=== PATIENT | male | born 1970 | race African-American/Black ===

== ENCOUNTER 2017-08-12 00:32 | Emergency (ER) | payer SELFPAY ==
[~2017-08-12] VITALS: Ht 175.3 cm; Wt 87.1 kg
== END 2017-08-12 01:50 | disposition home or self-care (01) ==
LOC: FSED 00:32
DX: N34.1 Nonspecific urethritis (principal)
CPT/HCPCS: 87081; 87205; 99282

== ENCOUNTER 2020-02-04 15:08 | Emergency (ER) | payer SELFPAY ==
[~2020-02-04] VITALS: Ht 175.3 cm; Wt 72.6 kg
[2020-02-04] MEDS ORDERED: SODIUM CHLORIDE 0.9% 1000ML 1,000 ML IV STA (15:27)
[2020-02-04] MEDS ORDERED: IOPAMIDOL 370 MG/ML 200 ML INFUS..BTL INJ ONE (15:39)
[2020-02-04] MEDS ORDERED: SODIUM CHLORIDE 0.9% 50ML 50 ML ONE (15:39)
[2020-02-04] MEDS ORDERED: SODIUM CHLORIDE 0.9% 1000ML 1,000 ML ONE (15:54)
== END 2020-02-04 17:04 | disposition home or self-care (01) ==
LOC: FSED 15:30
DX: R07.89 Other chest pain (principal); M79.10 Myalgia, unspecified site; K21.9 Gastro-esophageal reflux disease without esophagitis; M54.2 Cervicalgia
CPT/HCPCS: 71260; 93005; 99284; J7030; Q9967

== ENCOUNTER 2021-06-06 11:56 | Emergency (ER) | payer OTHER ==
[~2021-06-06] VITALS: Ht 175.3 cm; Wt 81.6 kg
[2021-06-06] MEDS ORDERED: LACTATED RINGER'S 1,000 ML INJ STA (12:17)
[2021-06-06 12:42] LABS: BASOPHILS # (AUTO) 0.1 (0.0-0.1); BASOPHILS % 1.2 % (0.0-1.0); EOSINOPHILS # (AUTO) 0.2 (0.0-0.4); EOSINOPHILS % 3.8 % (0.0-6.0); HEMATOCRIT 47.2 % (38.2-49.6); HEMOGLOBIN 16.1 g/dL (14.0-18.0); LYMPHOCYTES # (AUTO) 1.5 (1.0-3.2); MEAN CORPUSCULAR HGB CONC 34.1 g/dL (31-35); MEAN CORPUSCULAR VOLUME 84.9 fL (81-99); MONOCYTES # (AUTO) 0.4 (0.2-0.8); MONOCYTES % 6.8 % (4.4-11.3); NEUTROPHILS # (AUTO) 3.7 (2.1-6.9); PLATELET COUNT 252 x10e3/uL (140-360); RED BLOOD COUNT 5.56 x10e6/uL (4.3-5.7)
[2021-06-06 12:59] LABS: ALBUMIN 4.1 g/dL (3.5-5.0); ANION GAP 12.7 mmol/L (8-16); CALCIUM 9.2 mg/dL (8.4-10.2); CREATININE, SERUM 1.42 mg/dL (0.72-1.25); POTASSIUM 3.7 mmol/L (3.5-5.1)
[2021-06-06] MEDS ORDERED: SODIUM CHLORIDE 0.9% 1000ML 1,000 ML ONE (13:53)
== END 2021-06-06 14:29 | disposition home or self-care (01) ==
LOC: ER 12:09
DX: R53.1 Weakness (principal); R25.1 Tremor, unspecified; K21.9 Gastro-esophageal reflux disease without esophagitis; Z86.16 Personal history of COVID-19
CPT/HCPCS: 36415; 70450; 71045; 80053; 84484; 85025; 93005; 99284; J7030

== ENCOUNTER 2021-07-30 13:33 | Emergency (ER) | payer OTHER ==
[~2021-07-30] VITALS: Ht 175.3 cm; Wt 84.5 kg
[2021-07-30] MEDS ORDERED: PROPRANOLOL HCL10 MG PO (13:55)
[2021-07-30] MEDS ORDERED: AMLODIPINE BES2.5 MG (13:55)
[2021-07-30] MEDS ORDERED: FAMOTIDINE 20 MG/2 ML VIAL IV ONE ×2 (14:00→14:35)
[2021-07-30] MEDS ORDERED: ONDANSETRON HCL INJ 2MG/ML 2ML 2 MG/ML VIAL IV PRN (14:00)
[2021-07-30] MEDS ORDERED: ONDANSETRON HCL INJ 2MG/ML 2ML 2 MG/ML VIAL ONE (14:34)
[2021-07-30] MEDS ORDERED: SODIUM CHLORIDE 0.9% 1000ML 1,000 ML ONE (14:34)
[2021-07-30] MEDS ORDERED: SODIUM CHLORIDE 0.9% 1000ML 1,000 ML IV STA (15:09)
[2021-07-30] MEDS ORDERED: MAGNESIUM CITR296 ML PO (15:17)
[2021-07-30] MEDS ORDERED: OMEPRAZOLE40 MG PO (15:18)
== END 2021-07-30 15:36 | disposition home or self-care (01) ==
LOC: FSED 14:01
DX: R10.13 Epigastric pain (principal); R00.0 Tachycardia, unspecified; R07.89 Other chest pain; I10 Essential (primary) hypertension; F41.9 Anxiety disorder, unspecified; K21.9 Gastro-esophageal reflux disease without esophagitis; R94.31 Abnormal electrocardiogram [ECG] [EKG]
CPT/HCPCS: 74022; 80048; 80076; 81003; 82553; 84484; 85025; 85379; 93005; 96374; 96375; 99284; J2405; J7030

== ENCOUNTER 2021-08-26 15:26 | Emergency (ER) | payer OTHER ==
[~2021-08-26] VITALS: Ht 175.3 cm; Wt 84.4 kg
[~2021-08-26 15:26] MED LIST: AMLODIPINE BES2.5 MG; MAGNESIUM CITR296 ML PO; OMEPRAZOLE40 MG PO; PROPRANOLOL HCL10 MG PO
[2021-08-26] MEDS ORDERED: KETOROLAC TROMETHAMINE 30 MG/ML VIAL IV STA (16:19)
[2021-08-26 16:48] LABS: BASOPHILS # (AUTO) 0.1 (0.0-0.1); BASOPHILS % 0.7 % (0.0-1.0); EOSINOPHILS # (AUTO) 0.2 (0.0-0.4); EOSINOPHILS % 1.8 % (0.0-6.0); HEMATOCRIT 46.1 % (38.2-49.6); HEMOGLOBIN 15.5 g/dL (14.0-18.0); LYMPHOCYTES # (AUTO) 1.8 (1.0-3.2); LYMPHOCYTES % 21.6 % (18.0-39.1); MEAN CORPUSCULAR HEMOGLOBIN 28.3 pg (28-32); MEAN CORPUSCULAR HGB CONC 33.6 g/dL (31-35); MEAN CORPUSCULAR VOLUME 84.3 fL (81-99); MONOCYTES # (AUTO) 0.6 (0.2-0.8); MONOCYTES % 7.6 % (4.4-11.3); NEUTROPHILS # (AUTO) 5.7 (2.1-6.9); NEUTROPHILS % 68.1 % (38.7-80.0); PLATELET COUNT 274 x10e3/uL (140-360); RED BLOOD COUNT 5.47 x10e6/uL (4.3-5.7)
[2021-08-26 16:50] LABS: CLARITY,URINE CLEAR (CLEAR); COLOR,URINE YELLOW (YELLOW); KETONES,URINE NEGATIVE (NEGATIVE); LEUKOCYTE ESTERASE ,URINE NEGATIVE (NEGATIVE); NITRITE,URINE NEGATIVE (NEGATIVE); PROTEIN,URINE DIPSTICK NEGATIVE (NEGATIVE); URINE UROBILINOGEN 0.2 mg/dL (0.2 - 1)
[2021-08-26 17:05] LABS: ALBUMIN 4.3 g/dL (3.5-5.0); ALBUMIN/GLOBULIN RATIO 1.1 (0.8-2.0); ANION GAP 14.9 mmol/L (8-16); CALCIUM 9.5 mg/dL (8.4-10.2); CREATININE, SERUM 1.32 mg/dL (0.72-1.25); POTASSIUM 3.9 mmol/L (3.5-5.1)
[2021-08-26] MEDS ORDERED: IOPAMIDOL 370 MG/ML 100 ML INFUS..BTL INJ ONE (18:02)
[2021-08-26] MEDS ORDERED: METHOCARBAMOL750 MG PO (19:44)
[2021-08-26] MEDS ORDERED: KETOROLAC TROME10 MG PO (19:44)
[2021-08-26 20:14] VITALS: BP 144/82
== END 2021-08-26 20:17 | disposition home or self-care (01) ==
LOC: ER 15:31
DX: R10.9 Unspecified abdominal pain (principal); I10 Essential (primary) hypertension; F41.9 Anxiety disorder, unspecified; K21.9 Gastro-esophageal reflux disease without esophagitis
CPT/HCPCS: 36415; 74177; 80053; 81001; 83690; 85025; 99283; Q9967

== ENCOUNTER 2021-10-12 13:44 | Emergency (ER) | payer OTHER ==
[~2021-10-12] VITALS: Ht 175.3 cm; Wt 84.4 kg
[~2021-10-12 13:44] MED LIST changes: +KETOROLAC TROME10 MG PO; +METHOCARBAMOL750 MG PO; +SODIUM CHLORIDE FLUSH 10 ML SYR IV PRN
[2021-10-12] MEDS ORDERED: KETOROLAC TROMETHAMINE 30 MG/ML VIAL IV STA (14:18)
[2021-10-12] MEDS ORDERED: ONDANSETRON HCL INJ 2MG/ML 2ML 2 MG/ML VIAL IV STA (14:18)
[2021-10-12] MEDS ORDERED: SODIUM CHLORIDE 0.9% 1000ML 1,000 ML IV SCH (14:20)
[2021-10-12 14:47] LABS: BASOPHILS # (AUTO) 0.1 (0.0-0.1); BASOPHILS % 0.9 % (0.0-1.0); EOSINOPHILS # (AUTO) 0.1 (0.0-0.4); EOSINOPHILS % 1.7 % (0.0-6.0); HEMOGLOBIN 14.9 g/dL (14.0-18.0); LYMPHOCYTES # (AUTO) 1.5 (1.0-3.2); MEAN CORPUSCULAR HEMOGLOBIN 28.1 pg (28-32); MEAN CORPUSCULAR HGB CONC 33.9 g/dL (31-35); MONOCYTES # (AUTO) 0.5 (0.2-0.8); MONOCYTES % 6.7 % (4.4-11.3); NEUTROPHILS # (AUTO) 5.5 (2.1-6.9); NEUTROPHILS % 71.4 % (38.7-80.0); PLATELET COUNT 298 x10e3/uL (140-360); RED CELL DISTRIBUTION WIDTH 12.3 % (11.7-14.4)
[2021-10-12 14:55] LABS: INR 0.92; PROTHROMBIN TIME 13.2 seconds (11.9-14.5)
[2021-10-12 14:56] LABS: PARTIAL THROMBOPLASTIN TIME 26.6 seconds (23.8-35.5)
[2021-10-12 15:01] LABS: CLARITY,URINE CLEAR (CLEAR); COLOR,URINE YELLOW (YELLOW); KETONES,URINE NEGATIVE (NEGATIVE); LEUKOCYTE ESTERASE ,URINE NEGATIVE (NEGATIVE); NITRITE,URINE NEGATIVE (NEGATIVE); PROTEIN,URINE DIPSTICK NEGATIVE (NEGATIVE)
[2021-10-12 15:02] LABS: AMPHETAMINES SCREEN,URINE NEGATIVE (NEGATIVE); BENZODIAZEPINES SCREEN,URINE NEGATIVE (NEGATIVE); PHENCYCLIDINE SCREEN,URINE NEGATIVE (NEGATIVE); URINE UROBILINOGEN 0.2 mg/dL (0.2 - 1)
[2021-10-12 15:03] LABS: ALBUMIN 4.3 g/dL (3.5-5.0); ALBUMIN/GLOBULIN RATIO 1.2 (0.8-2.0); ANION GAP 15.8 mmol/L (8-16); CALCIUM 9.9 mg/dL (8.4-10.2); CREATININE, SERUM 1.2 mg/dL (0.72-1.25); POTASSIUM 3.8 mmol/L (3.5-5.1)
[2021-10-12 15:04] LABS: EPITHELIAL CELLS,URINE RARE /LPF
[2021-10-12 15:05] LABS: BACTERIA,URINE FEW /HPF; RBC,URINE 0-5 /HPF (0-5)
[2021-10-12] MEDS ORDERED: NAPROSYN500 MG PO (16:46)
[2021-10-12] MEDS ORDERED: METHOCARBAMOL500 MG PO (16:46)
[2021-10-12] MEDS ORDERED: ONDANSETRON ODT4 MG PO (16:47)
== END 2021-10-12 17:05 | disposition home or self-care (01) ==
LOC: ER 13:50
DX: R10.32 Left lower quadrant pain (principal); R00.0 Tachycardia, unspecified; R11.0 Nausea; R25.1 Tremor, unspecified; I10 Essential (primary) hypertension; K21.9 Gastro-esophageal reflux disease without esophagitis
CPT/HCPCS: 36415; 74176; 80053; 80307; 81001; 83690; 85025; 85610; 85730; 99284

== ENCOUNTER 2021-10-25 10:38 | Emergency (ER) | payer OTHER ==
[~2021-10-25] VITALS: Ht 175.3 cm; Wt 84.4 kg
[~2021-10-25 10:38] MED LIST changes: +METHOCARBAMOL500 MG PO; +NAPROSYN500 MG PO; +ONDANSETRON ODT4 MG PO; -SODIUM CHLORIDE FLUSH 10 ML SYR IV PRN
[2021-10-25] MEDS ORDERED: KETOROLAC TROMETHAMINE 30 MG/ML VIAL IV STA (11:07)
[2021-10-25] MEDS ORDERED: DEXAMETHASONE SOD PHOS 10 MG/1 ML VIAL IV ONE (11:15)
[2021-10-25 11:39] LABS: BASOPHILS # (AUTO) 0.1 (0.0-0.1); BASOPHILS % 0.9 % (0.0-1.0); EOSINOPHILS # (AUTO) 0.1 (0.0-0.4); EOSINOPHILS % 0.8 % (0.0-6.0); HEMATOCRIT 44.6 % (38.2-49.6); HEMOGLOBIN 14.9 g/dL (14.0-18.0); LYMPHOCYTES # (AUTO) 1.4 (1.0-3.2); LYMPHOCYTES % 18.7 % (18.0-39.1); MEAN CORPUSCULAR HEMOGLOBIN 28.6 pg (28-32); MEAN CORPUSCULAR HGB CONC 33.4 g/dL (31-35); MEAN CORPUSCULAR VOLUME 85.6 fL (81-99); MONOCYTES # (AUTO) 0.5 (0.2-0.8); MONOCYTES % 7.1 % (4.4-11.3); NEUTROPHILS # (AUTO) 5.4 (2.1-6.9); NEUTROPHILS % 72.4 % (38.7-80.0); PLATELET COUNT 289 x10e3/uL (140-360); RED BLOOD COUNT 5.21 x10e6/uL (4.3-5.7); RED CELL DISTRIBUTION WIDTH 12.4 % (11.7-14.4)
[2021-10-25 11:52] LABS: CLARITY,URINE CLEAR (CLEAR); COLOR,URINE YELLOW (YELLOW); KETONES,URINE NEGATIVE (NEGATIVE); LEUKOCYTE ESTERASE ,URINE NEGATIVE (NEGATIVE); NITRITE,URINE NEGATIVE (NEGATIVE); PROTEIN,URINE DIPSTICK NEGATIVE (NEGATIVE); URINE UROBILINOGEN 0.2 mg/dL (0.2 - 1)
[2021-10-25 11:56] LABS: ALBUMIN 4.5 g/dL (3.5-5.0); ALBUMIN/GLOBULIN RATIO 1.3 (0.8-2.0); ANION GAP 16.3 mmol/L (8-16); CALCIUM 9.7 mg/dL (8.4-10.2); CREATININE, SERUM 1.13 mg/dL (0.72-1.25); POTASSIUM 4.3 mmol/L (3.5-5.1)
[2021-10-25 12:00] LABS: BACTERIA,URINE RARE /HPF; EPITHELIAL CELLS,URINE RARE /LPF; WBC,URINE (MAN) 0-5 /HPF (0-5)
[2021-10-25] MEDS ORDERED: MEDROL4 M2 PO (12:59)
[2021-10-25] MEDS ORDERED: ANAPROX DS550 MG PEG (12:59)
[2021-10-25 13:16] VITALS: BP 148/89
== END 2021-10-25 13:18 | disposition home or self-care (01) ==
LOC: ER 11:08
DX: M54.12 Radiculopathy, cervical region (principal); R10.32 Left lower quadrant pain; I10 Essential (primary) hypertension; K21.9 Gastro-esophageal reflux disease without esophagitis; R94.31 Abnormal electrocardiogram [ECG] [EKG]
CPT/HCPCS: 36415; 72050; 80053; 81001; 85025; 93005; 99284; J1100; J1885

== ENCOUNTER 2021-10-31 09:37 | Emergency (ER) | payer OTHER ==
[~2021-10-31] VITALS: Ht 175.3 cm; Wt 84.4 kg
[~2021-10-31 09:37] MED LIST changes: +ANAPROX DS550 MG PEG; +MEDROL4 M2 PO
[2021-10-31] MEDS ORDERED: AMOX TR-K CLV1 EAC2 PO (09:59)
== END 2021-10-31 10:37 | disposition home or self-care (01) ==
LOC: ER 10:00
DX: R11.0 Nausea (principal); T36.8X5A Adverse effect of other systemic antibiotics, initial encounter; T37.3X5A Adverse effect of other antiprotozoal drugs, initial encounter; M79.10 Myalgia, unspecified site; R53.1 Weakness
CPT/HCPCS: 93005; 99282

== ENCOUNTER 2021-12-22 14:19 | Emergency (ER) | payer OTHER ==
[~2021-12-22] VITALS: Ht 175.3 cm; Wt 84.4 kg
[~2021-12-22 14:19] MED LIST changes: +AMOX TR-K CLV1 EAC2 PO
[2021-12-22 15:04] LABS: BASOPHILS # (AUTO) 0.1 (0.0-0.1); BASOPHILS % 0.9 % (0.0-1.0); EOSINOPHILS # (AUTO) 0.2 (0.0-0.4); EOSINOPHILS % 2.3 % (0.0-6.0); HEMATOCRIT 42.8 % (38.2-49.6); HEMOGLOBIN 14.6 g/dL (14.0-18.0); LYMPHOCYTES # (AUTO) 1.5 (1.0-3.2); LYMPHOCYTES % 21.6 % (18.0-39.1); MEAN CORPUSCULAR HEMOGLOBIN 28.5 pg (28-32); MEAN CORPUSCULAR HGB CONC 34.1 g/dL (31-35); MEAN CORPUSCULAR VOLUME 83.4 fL (81-99); MONOCYTES # (AUTO) 0.7 (0.2-0.8); MONOCYTES % 9.9 % (4.4-11.3); NEUTROPHILS # (AUTO) 4.5 (2.1-6.9); PLATELET COUNT 278 x10e3/uL (140-360); RED BLOOD COUNT 5.13 x10e6/uL (4.3-5.7); RED CELL DISTRIBUTION WIDTH 12.9 % (11.7-14.4)
[2021-12-22 15:24] LABS: ALBUMIN 4.2 g/dL (3.5-5.0); ALBUMIN/GLOBULIN RATIO 1.3 (0.8-2.0); ANION GAP 14.4 mmol/L (8-16); CALCIUM 8.9 mg/dL (8.4-10.2); CREATININE, SERUM 1.47 mg/dL (0.72-1.25); POTASSIUM 4.4 mmol/L (3.5-5.1)
[2021-12-22 15:32] LABS: CREATINE KINASE MB 4.2 ng/mL (0-5.0)
[2021-12-22 16:45] VITALS: BP 125/84
== END 2021-12-22 16:48 | disposition home or self-care (01) ==
LOC: ER 14:45
DX: R07.89 Other chest pain (principal); S29.012A Strain of muscle and tendon of back wall of thorax, initial encounter; I10 Essential (primary) hypertension; K21.9 Gastro-esophageal reflux disease without esophagitis; R94.31 Abnormal electrocardiogram [ECG] [EKG]
CPT/HCPCS: 36415; 71045; 80053; 82550; 82553; 84484; 85025; 85379; 93005; 99283

== ENCOUNTER 2024-01-17 15:17 | Emergency (ER) | payer OTHER ==
[~2024-01-17] VITALS: Ht 175.3 cm; Wt 71.2 kg
[~2024-01-17 15:17] MED LIST changes: +GOLYTELY SOLU4000 M1 PO
[2024-01-17 17:37] VITALS: TEMP 98.4
[2024-01-17 18:10] LABS: BASOPHILS # (AUTO) 0.1 (0.0-0.1); EOSINOPHILS # (AUTO) 0.1 (0.0-0.4); EOSINOPHILS % 1.3 % (0.0-6.0); HEMATOCRIT 43.6 % (38.2-49.6); HEMOGLOBIN 14.6 g/dL (14.0-18.0); LYMPHOCYTES # (AUTO) 1.9 (1.0-3.2); LYMPHOCYTES % 24.6 % (18.0-39.1); MEAN CORPUSCULAR HGB CONC 33.5 g/dL (31-35); MEAN CORPUSCULAR VOLUME 86.5 fL (81-99); MONOCYTES # (AUTO) 0.6 (0.2-0.8); MONOCYTES % 8.2 % (4.4-11.3); NEUTROPHILS % 64.6 % (38.7-80.0); PLATELET COUNT 263 x10e3/uL (140-360); RED BLOOD COUNT 5.04 x10e6/uL (4.3-5.7); RED CELL DISTRIBUTION WIDTH 12.4 % (11.7-14.4); WHITE BLOOD COUNT 7.68 x10e3/uL (4.8-10.8)
[2024-01-17 18:29] LABS: ALBUMIN 4.3 g/dL (3.5-5.0); ALBUMIN/GLOBULIN RATIO 1.2 (0.8-2.0); ANION GAP 16.9 mmol/L (8-16); BILIRUBIN,TOTAL 0.7 mg/dL (0.2-1.2); CALCIUM 9.5 mg/dL (8.4-10.2); CREATININE, SERUM 1.1 mg/dL (0.72-1.25); POTASSIUM 3.9 mmol/L (3.5-5.1); TOTAL PROTEIN 7.9 g/dL (6.5-8.1)
[2024-01-17] MEDS ORDERED: IOPAMIDOL 370 MG/ML 100 ML INFUS..BTL INJ ONE (18:33)
[2024-01-17] MEDS: SODIUM CHLORIDE 0.9% 1000ML 1,000 ML IV STA ×2 (18:34→20:52)
[2024-01-17] MEDS: KETOROLAC TROMETHAMINE 30 MG/ML VIAL IV STA (21:00)
[2024-01-17] MEDS ORDERED: FLOMAX0.4 MG PO (21:19)
[2024-01-17] MEDS ORDERED: MIRALAX17 GM PO (21:19)
[2024-01-17] MEDS ORDERED: KETOROLAC TROME10 MG PO (21:19)
[2024-01-17 21:27] VITALS: PULSE 82; RESP 16
[2024-01-17] MEDS: HYDRALAZINE HCL 20 MG/ML VIAL IV STA (21:38)
[2024-01-17 21:39] VITALS: BP 150/103; PULSE 82; RESP 16; TEMP 98.5; O2SAT 100
== END 2024-01-17 21:40 | disposition home or self-care (01) ==
LOC: ER 17:00
DX: R10.32 Left lower quadrant pain (principal); G20.A1 Parkinson's disease without dyskinesia, without mention of fluctuations; T50.995A Adverse effect of other drugs, medicaments and biological substances, initial encounter; I10 Essential (primary) hypertension; K76.0 Fatty (change of) liver, not elsewhere classified
CPT/HCPCS: 36415; 70450; 74177; 80053; 85025; 93005; 99284; J0360; J1885; J7030; Q9967